=== PATIENT | male | born 1995 | race Caucasian/White ===

== ENCOUNTER 2020-08-20 21:23 | Emergency (ER) | payer SELFPAY ==
[~2020-08-20] VITALS: Ht 182.9 cm; Wt 102.0 kg
[2020-08-20 21:30] VITALS: BP 138/70
== END 2020-08-21 03:07 | disposition home or self-care (01) ==
LOC: ER 21:23 → EDBD 21:23 → ER 08-21 03:07
DX: F10.129 Alcohol abuse with intoxication, unspecified (principal); Y90.9 Presence of alcohol in blood, level not specified
CPT/HCPCS: 93005; 99283